=== PATIENT | male | born 1935 | race Hispanic/Latino ===

== ENCOUNTER → 2018-04-15 | Outpatient (CLI) | payer MEDICARE | END | disposition home or self-care (01) | LOC: SHCH 12:54 | PROVIDERS: ATTEND Internal Medicine Cardiovascular Disease | DX: I35.0 Nonrheumatic aortic (valve) stenosis (principal) | CPT/HCPCS: 93306 ==

== ENCOUNTER 2019-02-25 18:52 | Emergency (ER) | payer MEDICARE ==
[2019-02-25] MEDS ORDERED: SODIUM CHLORIDE 0.9% 1000ML 1,000 ML IV ONE (19:55)
[2019-02-25 20:03] LABS: BASOPHILS % (AUTO) 0.9 % (0.0-5.0); EOSINOPHILS % (AUTO) 0.6 % (0.0-8.0); HEMATOCRIT 31.9 % (42-54); LYMPHOCYTES % (AUTO) 33.4 % (21.0-51.0); MEAN CORPUSCULAR HEMOGLOBIN 32.7 pg (27.0-33.0); MEAN CORPUSCULAR HGB CONC 35.2 g/dL (32.0-36.0); MEAN CORPUSCULAR VOLUME 92.9 fL (79-99); MONOCYTES % (AUTO) 9.1 % (3.0-13.0); PLATELET COUNT (AUTO) 266 K/uL (130-400); RED BLOOD CELL COUNT(AUTO) 3.43 MIL/uL (4.50-6.20); RED CELL DISTRIBUTION WIDTH 12.8 % (11.0-15.5); WHITE BLOOD COUNT (AUTO) 5.3 K/uL (4.8-10.8)
[2019-02-25 20:19] LABS: CREATININE 0.8 mg/dL (0.5-1.5); POTASSIUM 4.2 mmol/L (3.5-5.1)
[2019-02-25 20:24] LABS: INR 0.96 (0.85-1.15); PROTHROMBIN TIME 10.1 SEC (9.6-11.6)
[2019-02-25 20:28] LABS: APPEARANCE,URINE Clear (CLEAR); BILIRUBIN,URINE Negative (NEGATIVE); COLOR,URINE Yellow (YELLOW); GLUCOSE, URINE (UA) Negative (NEGATIVE); KETONES,URINE 15 mg/dL (NEGATIVE); LEUKOCYTE ESTERASE ,URINE Negative (NEGATIVE); NITRATE,URINE Negative (NEGATIVE); OCCULT BLOOD,URINE Negative (NEGATIVE); PROTEIN,URINE Negative (NEGATIVE); UROBILINOGEN,URINE 0.2 mg/dL (0.2-1.0)
[2019-02-25 20:30] LABS: ALBUMIN 3.2 g/dL (3.5-5.0); BILIRUBIN,TOTAL 0.6 mg/dL (0.2-1.0); MAGNESIUM 2.3 mg/dL (1.80-2.40); THYROID STIMULATING HORMONE 1.05 uIU/mL (0.36-3.74); TOTAL PROTEIN, SERUM 6.2 g/dL (6.0-8.3)
[2019-02-25 20:46] LABS: B-TYPE NATRIURETIC PEPTIDE 9 pg/mL (0-100)
== END 2019-02-25 23:03 | disposition home or self-care (01) ==
LOC: EDH 18:52
DX: E86.9 Volume depletion, unspecified (principal); R42 Dizziness and giddiness; I10 Essential (primary) hypertension; R79.1 Abnormal coagulation profile
CPT/HCPCS: 36415; 70450; 71045; 80053; 81003; 82550; 83605; 83690; 83735; 83880; 84443; 84484; 85025; 85610; 85730; 87804 ×2; 93005; 96360; 96361; 99284; J7030

== ENCOUNTER 2019-02-28 10:05 | Inpatient (IN) | payer MEDICARE ==
[~2019-02-28] VITALS: Ht 170.2 cm; Wt 82.1 kg
[2019-02-28 10:41] LABS: BASOPHILS % (AUTO) 0.6 % (0.0-5.0); EOSINOPHILS % (AUTO) 0.5 % (0.0-8.0); LYMPHOCYTES % (AUTO) 42.1 % (21.0-51.0); MEAN CORPUSCULAR HEMOGLOBIN 33.6 pg (27.0-33.0); MEAN CORPUSCULAR HGB CONC 35.8 g/dL (32.0-36.0); MEAN CORPUSCULAR VOLUME 93.6 fL (79-99); MONOCYTES % (AUTO) 8.1 % (3.0-13.0); NEUTROPHILS % (AUTO) 48.7 % (40.0-77.0); NUCLEATED RED BLOOD CELLS 0.4 % (0.0-0.19); PLATELET COUNT (AUTO) 210 K/uL (130-400); RED BLOOD CELL COUNT(AUTO) 1.81 MIL/uL (4.50-6.20); RED CELL DISTRIBUTION WIDTH 12.9 % (11.0-15.5); WHITE BLOOD COUNT (AUTO) 5.2 K/uL (4.8-10.8)
[2019-02-28 10:54] LABS: INR 0.96 (0.85-1.15); PARTIAL THROMBOPLASTIN TIME 23.2 SEC (26.3-35.5); PROTHROMBIN TIME 10.1 SEC (9.6-11.6)
[2019-02-28 11:08] LABS: ALBUMIN 2.7 g/dL (3.5-5.0); BILIRUBIN,TOTAL 0.3 mg/dL (0.2-1.0); CREATININE 0.8 mg/dL (0.5-1.5); TOTAL PROTEIN, SERUM 4.8 g/dL (6.0-8.3)
[2019-02-28] MEDS ORDERED: CEFTRIAXONE SODIUM 1 GM ONE (11:08)
[2019-02-28 11:20] LABS: APPEARANCE,URINE Clear (CLEAR); BILIRUBIN,URINE Negative (NEGATIVE); COLOR,URINE Yellow (YELLOW); GLUCOSE, URINE (UA) Negative (NEGATIVE); KETONES,URINE Negative (NEGATIVE); LEUKOCYTE ESTERASE ,URINE Negative (NEGATIVE); NITRATE,URINE Negative (NEGATIVE); OCCULT BLOOD,URINE Negative (NEGATIVE); PH,URINE 5.5 (5.0-8.0); PROTEIN,URINE Negative (NEGATIVE)
[2019-02-28] MEDS ORDERED: MORPHINE SULFATE 2 MG/ML 1ML SYG IV PRN (12:30)
[2019-02-28] MEDS ORDERED: ONDANSETRON HCL 4 MG/2 ML VIAL IV PRN (12:30)
[2019-02-28] MEDS ORDERED: HYDROCODONE/ACETAMINOPHEN 5/325 MG TAB PO PRN (12:30)
[2019-02-28] MEDS ORDERED: ACETAMINOPHEN 325 MG TAB PO PRN (12:30)
[2019-02-28] MEDS ORDERED: LIDOCAINE HCL-MPF 1% 2ML VIAL IVP PRN (12:45)
[2019-02-28] MEDS ORDERED: POTASSIUM CHLORIDE 20 MEQ ERTAB PO PRN (12:45)
[2019-02-28] MEDS ORDERED: POTASSIUM CHLORIDE 20MEQ/100ML 100 ML IV PRN (12:45)
[2019-02-28] MEDS ORDERED: POTASSIUM CHLORIDE 10% ELIXIR 20 MEQ/15 ML UDCUP ONE ×2 (14:00→16:20)
[2019-02-28] MEDS ORDERED: ACETAMINOPHEN 325 MG TAB ONE (14:43)
[2019-02-28] MEDS ORDERED: SODIUM CHLORIDE 0.9% 250 ML IV ONE (17:37)
--- NOTE | 2019-02-28 18:00 | NUR ---
Patient recieved from ER. Patient alert and oriented x3. Patient placed in bed with assistance from family members. Bed placed in the lowest position. Oriented to room, call light placed within reach and instructed on how to use. Instructed to call nurse when getting up to prevent falling due to recent fall in the home on Wednesday. Bruising noted to the right forearm. Patient states he has about 1-2 beers/day prior to his illness. patient pending to bring medications and instructed caregiver on bringing medications. Instructed patient/family 1 more unit of PRBC to be infused. No other questions or concerns voiced.
[2019-02-28 18:15] VITALS: BP_SYST 126; BP_SYST 150; BP_DIAS 53; BP_DIAS 78
[2019-02-28] MEDS ORDERED: AMLO10TA4 PO (20:39)
[2019-02-28] MEDS ORDERED: HYDR12.530 PO (20:39)
[2019-02-28] MEDS ORDERED: ASPI-555 PO (20:39)
[2019-02-28] MEDS: POTASSIUM CHLORIDE 10% ELIXIR 20 MEQ/15 ML UDCUP PO PRN (22:41)
--- NOTE | 2019-02-28 22:50 | NUR ---
Second unit of blood transfusion completed, no adverse reaction noted during or after blood transfusion, VS stable, pt in bed calmly watching tv. Call soto placed within reach.
[2019-02-28] MEDS ORDERED: POTASSIUM CHLORIDE 10% ELIXIR 20 MEQ/15 ML UDCUP PO ONE (23:45)
--- NOTE | 2019-02-28 23:57 | NUR ---
Dr. Leija to see Pt Addendum: 03/01/19 at 0002 by ISABELLE GRAVES RN RN Dr. Leija to see Pt. tomorrow Dr. Leija call and said he will see pt tomorrow before sx, order for NS @ 50cc, one time 40 mEq potassium, and pt should have clear liq breakfast before 0800 tomorrow.
[2019-03-01] VITALS (22 sets, daily range): BP systolic 107–166; BP diastolic 46–82
[2019-03-01] MEDS: SODIUM CHLORIDE 0.9% 1000ML 1,000 ML IV SCH ×2 (00:05→18:52)
[2019-03-01 05:14] LABS: HEMATOCRIT 21.3 % (42-54); MEAN CORPUSCULAR HEMOGLOBIN 31.4 pg (27.0-33.0); MEAN CORPUSCULAR HGB CONC 34.4 g/dL (32.0-36.0); MEAN CORPUSCULAR VOLUME 91.4 fL (79-99); NUCLEATED RED BLOOD CELLS 0.1 % (0.0-0.19); PLATELET COUNT (AUTO) 180 K/uL (130-400); RED BLOOD CELL COUNT(AUTO) 2.33 MIL/uL (4.50-6.20); RED CELL DISTRIBUTION WIDTH 14.3 % (11.0-15.5); WHITE BLOOD COUNT (AUTO) 4.7 K/uL (4.8-10.8)
[2019-03-01 05:25] LABS: CREATININE 0.7 mg/dL (0.5-1.5); MAGNESIUM 1.8 mg/dL (1.80-2.40); POTASSIUM 3.9 mmol/L (3.5-5.1)
[2019-03-01] MEDS: PANTOPRAZOLE SODIUM 40 MG TABLET.DR PO SCH (08:50)
--- NOTE | 2019-03-01 13:14 | NUR ---
PATIENT TRANSPORTED VIA BED DOWNSTAIR FOR EGD BY DR CUEVAS.
--- NOTE | 2019-03-01 14:54 | NUR ---
DCP CM met with pt discussed dc plans. Pt is independent prior to admission, lives athome with spouse, fam lives close by. Has a provider 3hrs/day, active w/Lindsey GARCIA. Denies any other equipments/services. Pt feels safe to go back home, still dirves, spouse and son able to assist with transportation and needs as necessary. DC plan to home once stable. CM to cont to follow up. Addendum: 03/01/19 at 1457 by SHAVONNE HERNANDEZ LVN CM Amended: Links added.
[2019-03-01] MEDS ORDERED: MAGNESIUM CITRATE 296 ML SOLUTION PO SCH ×2 (16:00→22:00)
[2019-03-01] MEDS ORDERED: LACTULOSE 20 GM/30 ML UDCUP PO SCH (17:04)
[2019-03-01] MEDS ORDERED: PEG 3350/NA SULF,BICARB,CL/KCL 4000 ML SOLN PO SCH (17:05)
[2019-03-01 21:39] LABS: HEMATOCRIT 28.5 % (42-54); MEAN CORPUSCULAR HEMOGLOBIN 31.6 pg (27.0-33.0); MEAN CORPUSCULAR HGB CONC 33.8 g/dL (32.0-36.0); MEAN CORPUSCULAR VOLUME 93.4 fL (79-99); NUCLEATED RED BLOOD CELLS 0.1 % (0.0-0.19); PLATELET COUNT (AUTO) 280 K/uL (130-400); RED BLOOD CELL COUNT(AUTO) 3.05 MIL/uL (4.50-6.20); RED CELL DISTRIBUTION WIDTH 14.4 % (11.0-15.5)
--- NOTE | 2019-03-01 22:30 | NUR ---
Tap water Enema administered as ordered, well tolerated, no complication noted, well resulted.
[2019-03-02] VITALS (24 sets, daily range): BP systolic 106–180; BP diastolic 55–80
--- NOTE | 2019-03-02 04:39 | NUR ---
INSTITUTION DIRECTOR STRIP MINE SUPERVISOR NOTIFIED ABOUT SECOND SET OF ANAEROBIC BOTTLE TURNED POSITIVE FOR GRAM + COCCI IN CLUSTERS, PENDING IDENTIFICATION AND SENSITIVITY, NURSING WILL CONTINUE TO MONITOR.
[2019-03-02 05:03] LABS: HEMATOCRIT 21.6 % (42-54); MEAN CORPUSCULAR HEMOGLOBIN 32.8 pg (27.0-33.0); MEAN CORPUSCULAR HGB CONC 35.3 g/dL (32.0-36.0); MEAN CORPUSCULAR VOLUME 92.8 fL (79-99); NUCLEATED RED BLOOD CELLS 0.1 % (0.0-0.19); PLATELET COUNT (AUTO) 196 K/uL (130-400); RED BLOOD CELL COUNT(AUTO) 2.33 MIL/uL (4.50-6.20); RED CELL DISTRIBUTION WIDTH 14.1 % (11.0-15.5); WHITE BLOOD COUNT (AUTO) 5.6 K/uL (4.8-10.8)
[2019-03-02 05:16] LABS: CREATININE 0.7 mg/dL (0.5-1.5); POTASSIUM 3.4 mmol/L (3.5-5.1)
--- NOTE | 2019-03-02 05:28 | NUR ---
Second part of tap enema given, well tolerated, well resulted, clear liquid yellow bowel output, pt clean and ready for procedure, nursing will continue to monitor.
[2019-03-02] MEDS: PANTOPRAZOLE SODIUM 40 MG TABLET.DR PO SCH (09:00)
[2019-03-02] MEDS ORDERED: PROPOFOL 10 MG/ML 20ML VIAL IV ONE ×2 (13:27→13:28)
[2019-03-02] MEDS ORDERED: LIDOCAINE HCL-MPF 2% 5ML VIAL ONE (13:28)
[2019-03-02] MEDS ORDERED: PHENYLEPHRINE HCL 10 MG/ML 1ML VIAL IV ONE (13:50)
[2019-03-02] MEDS: SODIUM CHLORIDE 0.9% 1000ML 1,000 ML IV SCH (16:36)
[2019-03-03 03:55] VITALS: BP 114/60
[2019-03-03 04:52] LABS: MEAN CORPUSCULAR HEMOGLOBIN 31.9 pg (27.0-33.0); NUCLEATED RED BLOOD CELLS 0.1 % (0.0-0.19); PLATELET COUNT (AUTO) 210 K/uL (130-400); RED BLOOD CELL COUNT(AUTO) 2.21 MIL/uL (4.50-6.20); RED CELL DISTRIBUTION WIDTH 14.4 % (11.0-15.5); WHITE BLOOD COUNT (AUTO) 4.6 K/uL (4.8-10.8)
[2019-03-03 05:00] LABS: HEMATOCRIT 20.8 % (42-54)
[2019-03-03 05:10] LABS: CREATININE 0.7 mg/dL (0.5-1.5); POTASSIUM 3.6 mmol/L (3.5-5.1)
[2019-03-03 08:00] VITALS: BP 131/62
--- NOTE | 2019-03-03 08:46 | NUR ---
Morning Labs Reported. Pt s/p EGD and Colonoscopy on 03/01 and 03/02 respectively, Lab call to report an H&H of 7.1 and 20.8, critical lab communicated to Summer Burks, recommended to follow standing order to transfuse when less than 7. Pt at this point asymptomatic, no dizziness or spinning in the room, able to hold meaningful communication, stable VS, primary nurse updated, care endorsed.
[2019-03-03] MEDS: PANTOPRAZOLE SODIUM 40 MG TABLET.DR PO SCH (10:29)
[2019-03-03] MEDS: SODIUM CHLORIDE 0.9% 1000ML 1,000 ML IV SCH (10:30)
[2019-03-03 12:00] VITALS: BP 130/62
[2019-03-03] MEDS ORDERED: SODIUM CHLORIDE 0.9% 500ML 500 ML IV ONE (14:08)
[2019-03-03 16:00] VITALS: BP 147/67
[2019-03-03 20:00] VITALS: BP 135/62
[2019-03-03] MEDS ORDERED: AMLODIPINE BESYLATE 5 MG TAB PO SCH (21:00)
[2019-03-04] VITALS: BP 147/75
[2019-03-04 04:00] VITALS: BP 147/65
[2019-03-04 05:03] LABS: HEMATOCRIT 25.8 % (42-54); MEAN CORPUSCULAR HEMOGLOBIN 31.3 pg (27.0-33.0); MEAN CORPUSCULAR HGB CONC 34.2 g/dL (32.0-36.0); MEAN CORPUSCULAR VOLUME 91.6 fL (79-99); NUCLEATED RED BLOOD CELLS 0.2 % (0.0-0.19); PLATELET COUNT (AUTO) 197 K/uL (130-400); RED BLOOD CELL COUNT(AUTO) 2.81 MIL/uL (4.50-6.20); RED CELL DISTRIBUTION WIDTH 15.6 % (11.0-15.5); WHITE BLOOD COUNT (AUTO) 4.9 K/uL (4.8-10.8)
[2019-03-04 05:11] LABS: CREATININE 0.7 mg/dL (0.5-1.5); POTASSIUM 3.5 mmol/L (3.5-5.1)
[2019-03-04 08:00] VITALS: BP 153/70
[2019-03-04] MEDS: HYDROCHLOROTHIAZIDE 25 MG TABLET PO SCH (09:37)
[2019-03-04] MEDS: PANTOPRAZOLE SODIUM 40 MG TABLET.DR PO SCH ×2 (09:37→20:53)
[2019-03-04] MEDS: ASPIRIN 81MG TAB.CHEW PO SCH (09:37)
[2019-03-04] MEDS ORDERED: VANCOMYCIN PROTOCOL PER PHARMACY IV SCH (10:30)
[2019-03-04] MEDS ORDERED: VANCOMYCIN HCL 1 GM VIAL IV SCH (11:00)
[2019-03-04] MEDS ORDERED: VANCOMYCIN 1GM+NS 250ML 250 ML IV SCH ×2 (11:00→21:00)
[2019-03-04 12:00] VITALS: BP 132/62
[2019-03-04] MEDS: POTASSIUM CHLORIDE 10% ELIXIR 20 MEQ/15 ML UDCUP PO PRN ×2 (12:52→17:41)
[2019-03-04 16:00] VITALS: BP 153/70
[2019-03-04 20:00] VITALS: BP 150/74
[2019-03-05] VITALS: BP 137/65
[2019-03-05 04:00] VITALS: BP 130/59
[2019-03-05 05:10] LABS: HEMATOCRIT 26.5 % (42-54); MEAN CORPUSCULAR HEMOGLOBIN 30.6 pg (27.0-33.0); MEAN CORPUSCULAR HGB CONC 33.9 g/dL (32.0-36.0); MEAN CORPUSCULAR VOLUME 90.4 fL (79-99); PLATELET COUNT (AUTO) 221 K/uL (130-400); RED BLOOD CELL COUNT(AUTO) 2.93 MIL/uL (4.50-6.20); RED CELL DISTRIBUTION WIDTH 15.7 % (11.0-15.5)
[2019-03-05 05:21] LABS: CREATININE 0.8 mg/dL (0.5-1.5); POTASSIUM 3.6 mmol/L (3.5-5.1)
[2019-03-05 08:00] VITALS: BP 117/63
[2019-03-05] MEDS: ASPIRIN 81MG TAB.CHEW PO SCH (09:01)
[2019-03-05] MEDS: PANTOPRAZOLE SODIUM 40 MG TABLET.DR PO SCH (09:01)
[2019-03-05] MEDS: HYDROCHLOROTHIAZIDE 25 MG TABLET PO SCH (09:02)
[2019-03-05 12:00] VITALS: BP 118/61
[2019-03-05] MEDS ORDERED: PANT40TA PO (13:01)
[2019-03-05] MEDS ORDERED: FERR325T22 PO (13:04)
--- NOTE | 2019-03-05 15:40 | NUR ---
DISCHARGE PATIENT/DAUGHTER (SINDY) GIVEN DISCHARGE INSTRUCTIONS VIA TEACH BACK. 22G PIV TO RH DISCONTINUED, TIP INTACT. RX GIVEN FOR PROTONIX 40MG 1 TAB PO BID. PATIENT TO MAKE FOLLOW UP APPOINTMENT WITH MICKY GARCÍA NP IN 3 DAYS. PATIENT STABLE AT THIS TIME. DAUGHTER'S AT BEDSIDE TO TRANSPORT PATIENT HOME.
== END 2019-03-05 15:45 | disposition home or self-care (01) | DRG 378 ==
LOC: EDH 10:05 → EDHIP 12:23 → 3BH 17:35
PROVIDERS: ADMIT Internal Medicine; ATTEND Internal Medicine
DX: K92.1 Melena (principal); E44.0 Moderate protein-calorie malnutrition; D62 Acute posthemorrhagic anemia; D64.9 Anemia, unspecified; E11.9 Type 2 diabetes mellitus without complications; E66.01 Morbid (severe) obesity due to excess calories; I10 Essential (primary) hypertension
CPT/HCPCS: 36415; 36430; 43239; 43255; 45385; 71045; 80048; 80053; 81003; 82270; 83605; 83735; 84484; 85025; 85027; 85610; 85730; 86850; 86900; 86901; 86922; 87040; 87077; 87186; 87804; 93005; 99291; G0378; J0696; J2370; J2704; J3370; J3490; J7030; J7040; P9016

== ENCOUNTER 2019-04-30 10:31 | Emergency (ER) | payer MEDICARE ==
[~2019-04-30 10:31] MED LIST: AMLO10TA4 PO; ASPI-555 PO; FERR325T22 PO; HYDR12.530 PO; PANT40TA PO
[2019-04-30] MEDS ORDERED: METHYLPREDNISOLONE SOD SUCC 125MG/2ML VIAL ONE (11:25)
[2019-04-30] MEDS ORDERED: KETOROLAC TROMETHAMINE 30MG/ML ONE (11:26)
== END 2019-04-30 12:31 | disposition home or self-care (01) ==
LOC: EDH 10:31
DX: M16.11 Unilateral primary osteoarthritis, right hip (principal); I10 Essential (primary) hypertension; K21.9 Gastro-esophageal reflux disease without esophagitis; Z98.890 Other specified postprocedural states; Z87.891 Personal history of nicotine dependence
CPT/HCPCS: 73502; 96372 ×2; 99284; J1885; J2930

== ENCOUNTER → 2019-07-07 | Outpatient (CLI) | payer MEDICARE | END | disposition home or self-care (01) | LOC: RAH 14:27 | PROVIDERS: ATTEND Family Medicine | DX: I65.21 Occlusion and stenosis of right carotid artery (principal); N28.1 Cyst of kidney, acquired | CPT/HCPCS: 76770; 93880 ==

== ENCOUNTER 2019-11-05 20:11 | Emergency (ER) | payer MEDICARE ==
[2019-11-05 20:49] LABS: BASOPHILS % (AUTO) 0.7 % (0.0-5.0); EOSINOPHILS % (AUTO) 2.8 % (0.0-8.0); HEMATOCRIT 44.9 % (42-54); LYMPHOCYTES % (AUTO) 39.2 % (21.0-51.0); MEAN CORPUSCULAR HEMOGLOBIN 30.5 pg (27.0-33.0); MEAN CORPUSCULAR HGB CONC 33.4 g/dL (32.0-36.0); MEAN CORPUSCULAR VOLUME 91.3 fL (79-99); MONOCYTES % (AUTO) 11.6 % (3.0-13.0); NEUTROPHILS % (AUTO) 45.4 % (40.0-77.0); PLATELET COUNT (AUTO) 241 K/uL (130-400); RED BLOOD CELL COUNT(AUTO) 4.92 MIL/uL (4.50-6.20); RED CELL DISTRIBUTION WIDTH 12.3 % (11.0-15.5); WHITE BLOOD COUNT (AUTO) 6.1 K/uL (4.8-10.8)
[2019-11-05 21:02] LABS: CREATININE 0.8 mg/dL (0.5-1.5); POTASSIUM 3.8 mmol/L (3.5-5.1)
[2019-11-05 21:10] LABS: ALBUMIN 3.9 g/dL (3.5-5.0); BILIRUBIN,TOTAL 0.5 mg/dL (0.2-1.0); TOTAL PROTEIN, SERUM 7.5 g/dL (6.0-8.3)
[2019-11-05 21:24] LABS: APPEARANCE,URINE Clear (CLEAR); BILIRUBIN,URINE Negative (NEGATIVE); COLOR,URINE Yellow (YELLOW); GLUCOSE, URINE (UA) Negative (NEGATIVE); KETONES,URINE Negative (NEGATIVE); LEUKOCYTE ESTERASE ,URINE Negative (NEGATIVE); NITRATE,URINE Negative (NEGATIVE); OCCULT BLOOD,URINE Negative (NEGATIVE); PH,URINE 7.5 (5.0-8.0); PROTEIN,URINE Negative (NEGATIVE); UROBILINOGEN,URINE 0.2 mg/dL (0.2-1.0)
[2019-11-05] MEDS ORDERED: SODIUM CHLORIDE 0.9% 1000ML 1,000 ML IV ONE (22:15)
[2019-11-05] MEDS ORDERED: MECLIZINE HCL 25 MG TABLET ONE (22:17)
== END 2019-11-05 22:33 | disposition home or self-care (01) ==
LOC: EDH 20:11
DX: R42 Dizziness and giddiness (principal); I10 Essential (primary) hypertension; E11.9 Type 2 diabetes mellitus without complications; K21.9 Gastro-esophageal reflux disease without esophagitis
CPT/HCPCS: 36415; 70450; 80053; 81003; 82550; 83690; 84484; 85025; 93005; 96360; 96361; 99285; J7030

== ENCOUNTER → 2020-01-04 | Outpatient (CLI) | payer MEDICARE | END | disposition home or self-care (01) | LOC: RAH 07:42 | PROVIDERS: ATTEND Family Medicine | DX: G45.9 Transient cerebral ischemic attack, unspecified (principal) | CPT/HCPCS: 70544 ==

== ENCOUNTER → 2020-08-30 | Outpatient (CLI) | payer OTHER, MEDICARE ==
[~2020-08-30] MED LIST changes: -ASPI-555 PO; +ASPI-556 PO
== END | disposition home or self-care (01) ==
LOC: SHCH 13:59
PROVIDERS: ATTEND Internal Medicine Cardiovascular Disease
DX: I51.7 Cardiomegaly (principal); I25.10 Atherosclerotic heart disease of native coronary artery without angina pectoris
CPT/HCPCS: 93306; 93356

== ENCOUNTER → 2021-03-11 | Outpatient (CLI) | payer OTHER, MEDICARE | END | disposition home or self-care (01) | LOC: RAH 07:59 | PROVIDERS: ATTEND Internal Medicine Gastroenterology | DX: F10.20 Alcohol dependence, uncomplicated (principal); R14.3 Flatulence; K76.0 Fatty (change of) liver, not elsewhere classified; I77.811 Abdominal aortic ectasia | CPT/HCPCS: 76700 ==

== ENCOUNTER → 2023-12-31 | Outpatient (CLI) | payer MEDICARE | END | disposition home or self-care (01) | LOC: SHCH 08:18 | PROVIDERS: ATTEND Internal Medicine Cardiovascular Disease | DX: I35.0 Nonrheumatic aortic (valve) stenosis (principal); I51.7 Cardiomegaly | CPT/HCPCS: 93306 ==

== ENCOUNTER → 2024-05-08 | Outpatient (CLI) | payer MEDICARE ==
[~2024-05-08] MED LIST changes: +IOHEXOL 350 MG/ML 100ML INFUS..BTL IV ONE
== END | disposition home or self-care (01) ==
LOC: RAH 07:37
PROVIDERS: ATTEND Internal Medicine Gastroenterology
DX: K82.8 Other specified diseases of gallbladder (principal); R94.5 Abnormal results of liver function studies; R63.4 Abnormal weight loss; I25.10 Atherosclerotic heart disease of native coronary artery without angina pectoris; M47.815 Spondylosis without myelopathy or radiculopathy, thoracolumbar region
CPT/HCPCS: 74178; Q9967

== ENCOUNTER 2024-06-28 06:00 | Observation (INO) | payer MEDICARE ==
[2024-06-26 10:15] LABS: BASOPHILS # (AUTO) 0.04 K/uL (0.00-0.20); EOSINOPHILS # (AUTO) 0.24 K/uL (0.00-0.70); EOSINOPHILS % (AUTO) 6.3 % (0.0-8.0); HEMATOCRIT 38.8 % (42-54); IMMATURE GRANULOCYTE ABSOLUTE 0.01 K/uL (0-1); LYMPHOCYTES # (AUTO) 1.1 K/uL (1.0-4.8); MEAN CORPUSCULAR HEMOGLOBIN 31.2 pg (27.0-33.0); MEAN CORPUSCULAR HGB CONC 33.2 g/dL (32.0-36.0); MEAN CORPUSCULAR VOLUME 93.7 fL (79-99); MONOCYTES # (AUTO) 0.4 K/uL (0.1-1.0); MONOCYTES % (AUTO) 11.5 % (3.0-13.0); NEUTROPHILS % (AUTO) 51.9 % (40.0-77.0); PLATELET COUNT (AUTO) 166 K/uL (130-400); RED BLOOD CELL COUNT(AUTO) 4.14 MIL/uL (4.50-6.20); RED CELL DISTRIBUTION WIDTH 12.7 % (11.0-15.5); WHITE BLOOD COUNT (AUTO) 3.8 K/uL (4.8-10.8)
[2024-06-26 10:17] LABS: APPEARANCE,URINE CLEAR (CLEAR); BILIRUBIN,URINE NEGATIVE (NEGATIVE); COLOR,URINE YELLOW (YELLOW); GLUCOSE, URINE (UA) NEGATIVE (NEGATIVE); KETONES,URINE NEGATIVE (NEGATIVE); LEUKOCYTE ESTERASE ,URINE NEGATIVE Leu/uL (NEGATIVE); NITRATE,URINE NEGATIVE (NEGATIVE); OCCULT BLOOD,URINE NEGATIVE (NEGATIVE); PROTEIN,URINE NEGATIVE (NEGATIVE); UROBILINOGEN,URINE 0.2 mg/dL (0.2-1.0)
[2024-06-26 10:23] LABS: CREATININE 0.8 mg/dL (0.5-1.3); POTASSIUM 4.2 mmol/L (3.5-5.1)
[2024-06-26 10:32] LABS: ADD UA MICROSCOPIC NO
[2024-06-26 10:42] LABS: INR 1.05 (0.85-1.15); PARTIAL THROMBOPLASTIN TIME 26.3 SEC (26.3-35.5); PROTHROMBIN TIME 11.1 SEC (9.6-11.6)
[2024-06-26 11:08] VITALS: BP 147/63; PULSE 74; RESP 16
[2024-06-26 11:22] LABS: B-TYPE NATRIURETIC PEPTIDE 78 pg/mL (0-100)
[2024-06-28] VITALS (22 sets, daily range): BP systolic 101–174; BP diastolic 43–79; PULSE 50–90; RESP 11–57; O2SAT 100
[~2024-06-28] VITALS: Ht 162.6 cm; Wt 62.4 kg
[~2024-06-28 06:00] MED LIST changes: +ALEN70TA80 PO; -ASPI-556 PO; +ATOR40TA69 PO; -FERR325T22 PO; +HYDR-4068 PO; -HYDR12.530 PO; -IOHEXOL 350 MG/ML 100ML INFUS..BTL IV ONE; +LINA145C PO; +METF-444 PO; +METO-408 PO; -PANT40TA PO; +PANT40TA54 PO; +PREVAGEN PO
[2024-06-28] MEDS ORDERED: IOHEXOL 350 MG/ML 100ML INFUS..BTL IV ONE (07:21)
[2024-06-28] MEDS ORDERED: NITROGLYCERIN 50MG VIAL ONE (07:21)
[2024-06-28] MEDS ORDERED: HEPARIN 10,000 UNIT/10ML (1,000 UNIT/ML) VIAL ONE (07:21)
[2024-06-28] MEDS ORDERED: BIVALIRUDIN 250 MG/VIAL IV ONE (07:21)
[2024-06-28] MEDS ORDERED: FENTANYL CITRATE PF 50 MCG/1 ML 2ML VIAL ONE (07:21)
[2024-06-28] MEDS ORDERED: MIDAZOLAM HCL 1 MG/ML 2ML VIAL ONE (07:21)
[2024-06-28] MEDS ORDERED: LIDOCAINE HCL 400MG/20ML VIAL ONE (07:21)
[2024-06-28] MEDS ORDERED: IOHEXOL-350 50ML VIAL IV ONE ×2 (08:00→08:44)
[2024-06-28] MEDS ORDERED: METOPROLOL TARTRATE 1 MG/ML 5ML VIAL IV ONE (08:10)
[2024-06-28] MEDS ORDERED: CLOPIDOGREL 300MG TAB ONE ×2 (08:50→08:52)
[2024-06-28] MEDS ORDERED: EPTIFIBATIDE 2 MG/ML 10 ML VIAL IVP ONE (08:51)
[2024-06-28] MEDS ORDERED: ASPIRIN 325MG EC TAB PO ONE (08:51)
[2024-06-28] MEDS: 0.9%NACL 1000ML 1,000 ML IV ONE (09:22)
[2024-06-28] MEDS: 0.9%NACL 10ML VIAL IV SCH (10:00)
[2024-06-28] MEDS ORDERED: DEXTROSE 50%-WATER 50 ML DISP.SYRIN IV PRN (10:00)
[2024-06-28] MEDS: INSULIN HUMULIN R 100 UNIT/ML 3ML SQ SCH (16:12)
[2024-06-28] MEDS ORDERED: NON-FORMULARY MEDICATION 1 EACH (Amlodipine Besylate (Norvasc) 10 MG) PO PRN (16:30)
[2024-06-28] MEDS ORDERED: AMLODIPINE 5 MG TAB PO PRN (16:30)
[2024-06-28] MEDS: ATORVASTATIN 40 MG TABLET PO SCH (20:33)
[2024-06-28] MEDS: HYDROCODONE/ACETAMINOPHEN 10/325 MG TAB PO PRN (23:58)
[2024-06-29 04:00] VITALS: BP 135/57; PULSE 65; RESP 19
[2024-06-29] MEDS: CLOPIDOGREL 75MG TAB PO SCH (08:27)
[2024-06-29] MEDS: ASPIRIN 81MG CHEW TAB PO SCH (08:28)
[2024-06-29] MEDS: METOPROLOL SUCCINATE 25 MG TAB.SR.24H PO SCH (08:28)
[2024-06-29] MEDS: PANTOPRAZOLE 40 MG TAB DR PO SCH (08:28)
[2024-06-29] MEDS: Linaclotide (Linzess) 145 MCG PO SCH (08:29)
[2024-06-29 08:48] VITALS: BP 146/70; PULSE 71; RESP 18
[2024-06-29 09:00] VITALS: O2SAT 98
[2024-06-29] MEDS ORDERED: CLOP-31 PO (09:16)
[2024-06-29] MEDS ORDERED: AEC81 PO (09:16)
== END 2024-06-29 10:00 | disposition home or self-care (01) ==
LOC: DAH 06:00 → DAHIP 06:01 → 2CV 15:33 → 3BH 21:54
PROVIDERS: ADMIT Internal Medicine Cardiovascular Disease; ATTEND Internal Medicine Cardiovascular Disease
DX: I25.10 Atherosclerotic heart disease of native coronary artery without angina pectoris (principal); I35.0 Nonrheumatic aortic (valve) stenosis; I10 Essential (primary) hypertension; I25.2 Old myocardial infarction; I27.20 Pulmonary hypertension, unspecified; E78.5 Hyperlipidemia, unspecified; K76.0 Fatty (change of) liver, not elsewhere classified; Z98.61 Coronary angioplasty status; Z79.899 Other long term (current) drug therapy
CPT/HCPCS: 80048; 83880; 85025; 85610; 85730; 81003; 36415; 71045; 93005; 93460; 82948 ×3; C1769 ×3; C1887; C1894 ×4; C1725; C1874; C1760; C1893; Q9965; G0378 ×19; J3010; J3490 ×3; J7030; J2250; J1327; J1644 ×2; J0583; Q9967 ×3; A4215; A4223 ×3; A4222; A4221; A4216; A5200; A4606; C9600; 99156; 99157

== ENCOUNTER → 2024-08-18 | Outpatient (CLI) | payer MEDICARE ==
[~2024-08-18] MED LIST changes: +AEC81 PO; +CLOP-31 PO
== END | disposition home or self-care (01) ==
LOC: RAH 11:24
PROVIDERS: ATTEND Nurse Practitioner Acute Care
DX: J84.10 Pulmonary fibrosis, unspecified (principal); J84.9 Interstitial pulmonary disease, unspecified; R06.02 Shortness of breath; R50.9 Fever, unspecified; M47.815 Spondylosis without myelopathy or radiculopathy, thoracolumbar region
CPT/HCPCS: 71046

== ENCOUNTER → 2025-02-22 | Outpatient (CLI) | payer MEDICARE ==
[~2025-02-22] MED LIST changes: +AMLO-257 PO; +FE F1CAP33 PO
[2025-02-22 16:15] LABS: BASOPHILS # (AUTO) 0.05 K/uL (0.00-0.20); BASOPHILS % (AUTO) 0.7 % (0.0-5.0); EOSINOPHILS % (AUTO) 2.6 % (0.0-8.0); HEMATOCRIT 36.5 % (42-54); IMMATURE GRANULOCYTE ABSOLUTE 0.07 K/uL (0-1); LYMPHOCYTES # (AUTO) 1.7 K/uL (1.0-4.8); LYMPHOCYTES % (AUTO) 22.5 % (21.0-51.0); MEAN CORPUSCULAR HEMOGLOBIN 31.7 pg (27.0-33.0); MEAN CORPUSCULAR HGB CONC 33.2 g/dL (32.0-36.0); MEAN CORPUSCULAR VOLUME 95.5 fL (79-99); MONOCYTES # (AUTO) 0.7 K/uL (0.1-1.0); MONOCYTES % (AUTO) 8.9 % (3.0-13.0); NEUTROPHILS % (AUTO) 64.4 % (40.0-77.0); PLATELET COUNT (AUTO) 357 K/uL (130-400); RED BLOOD CELL COUNT(AUTO) 3.82 MIL/uL (4.50-6.20); RED CELL DISTRIBUTION WIDTH 13.4 % (11.0-15.5); WHITE BLOOD COUNT (AUTO) 7.7 K/uL (4.8-10.8)
[2025-02-22 16:40] LABS: CREATININE 0.9 mg/dL (0.5-1.3); POTASSIUM 3.9 mmol/L (3.5-5.1)
== END | disposition home or self-care (01) ==
LOC: LAB 11:37
PROVIDERS: ATTEND Internal Medicine Cardiovascular Disease
DX: I50.32 Chronic diastolic (congestive) heart failure (principal)
CPT/HCPCS: 36415; 80048; 83880; 85025

== ENCOUNTER 2025-06-06 07:00 | Day surgery (SDC) | payer MEDICARE, MEDICAID ==
[2025-06-04 11:30] LABS: IMMATURE GRANULOCYTE ABSOLUTE 0.03 K/uL (0-1); NUCLEATED RED BLOOD CELLS 0.0 % (0.0-0.19); PLATELET COUNT (AUTO) 243 K/uL (130-400); RED BLOOD CELL COUNT(AUTO) 4.33 MIL/uL (4.50-6.20); RED CELL DISTRIBUTION WIDTH 12.5 % (11.0-15.5); WHITE BLOOD COUNT (AUTO) 7.1 K/uL (4.8-10.8)
[2025-06-04 11:37] LABS: APPEARANCE,URINE CLEAR (CLEAR); GLUCOSE, URINE (UA) NEGATIVE (NEGATIVE); LEUKOCYTE ESTERASE ,URINE NEGATIVE Leu/uL (NEGATIVE); NITRATE,URINE NEGATIVE (NEGATIVE); OCCULT BLOOD,URINE +- (TRACE) (NEGATIVE)
[2025-06-04 11:38] LABS: CREATININE 0.7 mg/dL (0.5-1.3); GLOMERULAR FILTR. RATE CALC 88.0 mL/min (>90); GLUCOSE,RANDOM 129.0 mg/dL (70-105); SODIUM SERUM 134.0 mmol/L (136-145); UREA NITROGEN, BLOOD 12.0 mg/dL (7-18)
[2025-06-04 11:41] LABS: ADD UA MICROSCOPIC YES
[2025-06-04 11:52] LABS: INR 1.01 (0.85-1.15)
[2025-06-04 12:01] VITALS: BP_SYST 78; PULSE 75; RESP 18; TEMP 96.8
--- NOTE | 2025-06-04 12:18 | EKG ---
[facility] Test Date: 2025-06-04 Test Time: 11:26:25 Pat Name: KATTY HARVEY Department: [facility] Room: Gender: M Pediatric Acute Care Unit Nurse: [id number] : [id number] Requested By: DARIO ODONNELL Order Number: [id number] Reading MD: Kaylee Ramos Measurements Intervals [place] Rate: 98 P: 77 CT: 246 QRS: 52 QRSD: 142 T: 14 QT: 354 QTc: 451 Interpretive Statements Sinus rhythm with 1st degree AV block Right bundle branch block Compared to ECG 02/18/2025 01:18:41 Ventricular premature complex(es) no longer present Electronically Signed On 06-04-2025 15:31:30 CDT by Kaylee Ramos Please click the below link to view image of tracing.
--- NOTE | 2025-06-05 04:45 | HMCIMG ---
EXAM: CR Chest, 1 view CLINICAL HISTORY: Preoperative evaluation. COMPARISON: Chest radiograph dated 02/20/2025. FINDINGS: The lungs show no infiltrates or other acute findings. No pleural effusion or pneumothorax. The cardiomediastinal silhouette is within normal limits. No acute osseous abnormality. Bowel shadows under the right hemidiaphragm, compatible with Chilaiditi syndrome. IMPRESSION: No acute cardiopulmonary process is evident. No interval changes. /[place]
[~2025-06-06] VITALS: Ht 162.6 cm; Wt 64.6 kg
[2025-06-06] VITALS (9 sets, daily range): BP systolic 99–191; BP diastolic 49–77; PULSE 68–85; RESP 10–18; TEMP 97.6–98
[~2025-06-06 07:00] MED LIST changes: -ALEN70TA80 PO; -AMLO10TA4 PO; +CHOL-34 PO; -FE F1CAP33 PO; +LISI10TA24 PO; -METF-444 PO
[2025-06-06] MEDS ORDERED: IOHEXOL 350 MG/ML 100ML INFUS..BTL IV ONE (09:18)
[2025-06-06] MEDS ORDERED: HEParin-NS 1,000 UNIT/500 ML 1,500 ML IV ONE (09:18)
[2025-06-06] MEDS ORDERED: LIDOCAINE HCL 400MG/20ML VIAL ONE (09:18)
[2025-06-06] MEDS ORDERED: NITROGLYCERIN 50MG VIAL ONE (09:19)
[2025-06-06] MEDS ORDERED: MIDAZOLAM HCL 1 MG/ML 2ML VIAL ONE ×2 (09:29→11:16)
[2025-06-06] MEDS ORDERED: IOHEXOL-350 50ML VIAL IV ONE (11:40)
[2025-06-06] MEDS ORDERED: HEParin-NS 1,000 UNIT/500 ML 500 ML IV ONE (12:30)
[2025-06-06] MEDS ORDERED: 0.9%NACL 1000ML 1,000 ML IV SCH (12:30)
--- NOTE | 2025-06-06 12:40 | PRN ---
DATE OF PROCEDURE: 06/06/2025 PROCEDURE PERFORMED: RIGHT AND LEFT HEART CATHETERIZATION, LEFT VENTRICULOGRAM, LEFT AND RIGHT SELECTIVE CORONARY ANGIOGRAM, RIGHT COMMON FEMORAL ANGIOGRAM, PERCLOSE SUTURE CLOSURE OF THE RIGHT COMMON FEMORAL ARTERY, AND CONSCIOUS SEDATION SKIN TOGGLER: Dario Odonnell MD, [facility] INDICATION: Severe aortic stenosis PROCEDURE NOTE: After informed consent was obtained the patient was prepped and draped in the usual sterile fashion. A seven Bulgarian venous sheath with hemostatic valve was inserted into the right common femoral vein using micropuncture technique and ultrasound guidance. A 6 Bulgarian 65 cm long arterial sheath was inserted in the right femoral artery using micropuncture technique with ultrasound guidance with a front wall, first pass puncture. This was performed after fluoroscopic identification of bony landmarks to facilitate a more accurate puncture of the right common femoral artery. The arterial and venous sheaths were aspirated and flushed. A seven [place]ian [place] S tipped catheter was advanced with balloon floatation and fluoroscopic guidance to the RA, RV, PA, and pulmonary capillary wedge positions with pressure measurements obtained. A six Bulgarian pigtail catheter A 5 Bulgarian pigtail catheter was then advanced over a J-tipped guidewire to the ascending aorta and simultaneous pressure measurements via the long 65 cm six Bulgarian sheath and the five Bulgarian pigtail catheter were obtained in the descending aorta and were confirmed to be identical. Subsequently, using a straight wire, the pigtail catheter was advanced into the left ventricle with mild difficulty. The catheter was aspirated and flushed and simultaneous pressure measurements were obtained in the LV and high descending thoracic aorta. Nathalia and thermodilution cardiac outputs and valve areas were then calculated. A left ventriculogram was then performed in a 30 PAREDES projection. A pullback procedure was then performed, and this catheter was removed. A 6F JL-4 was then advanced to the ascending aorta over a J-tipped guidewire, was aspirated and flushed, and was used for selective left coronary angiograms in multiple obliquities. A JR-4 was advanced in a similar fashion to the ascending aorta over a J-tipped guidewire and was used for selective right coronary angiograms in multiple obliquities with findings as outlined below. A right common femoral angiogram was performed to assess suitability for Perclose suture closure and the Perclose device was deployed in standard fashion. Perclose suture closure was successful without bleeding or hematoma. The patient tolerated the procedure well and was returned to the holding area in stable condition. FINDINGS: RIGHT HEART CATHETERIZATION: RA pressure was 8 mm of mercury on the A-wave, 6 mm of mercury on the V-wave, and the RA mean pressure was 5 mm of mercury. RV pressure was 33/2 mm of mercury. PA pressure was 35/12 mm of mercury. Mean PA pressure was 19 mm of mercury. Pulmonary capillary wedge pressure was 15 mm of mercury on the A-wave, 13 mm of mercury on the V-wave, and mean PCWP was 12 mm of mercury. Thermodilution cardiac output was 5.2 L/min and cardiac index 3.1 L/min per meter squared Nathalia cardiac output was 5.3 L/min and cardiac index 2.8 L/min per meter squared. LEFT HEART HEMODYNAMICS: Peak to peak aortic valve gradient was 40 mm of mercury and mean aortic valve gradient was 37 mm of mercury. Aortic valve area was 0.8 cm2 using Nathalia cardiac output. Aortic valve area was 0.9 cm2 using thermodilution cardiac output. LEFT VENTRICULOGRAM: There was normal LV segmental wall motion and systolic function with an LVEF of 65%. There was no angiographic MR. CORONARY ANGIOGRAM: LEFT MAIN: The left main coronary artery was normal and there was no dampening or ventricularization of the pressure waveform. LEFT ANTERIOR DESCENDING: The proximal LAD and mid LAD were calcific with a 40% proximal tubular stenosis and a 40% mid LAD stenosis. At the junction of the mid to distal 3rd of the LAD were tandem 50 and 60% stenoses. The diagonal branches were normal. LEFT CIRCUMFLEX: The left circumflex was nondominant and gave off two high takeoff OM branches with a 50% stenosis in the 1st OM and tandem 60 and 70% stenoses in the 2nd OM branch. RAMUS INTERMEDIATE BRANCH: There was no ramus intermediate branch. RIGHT CORONARY ARTERY: The right coronary artery was large and dominant and had a widely patent 3.0 x 15 mm [employer] [place] YOLANDA from 06/28/2024. The distal RCA had a 20% stenosis and the posterolateral segment before the posterolateral branch had a 30% tubular stenosis. IMPRESSION: Severe aortic stenosis with aortic valve area of 0.8 to 0.9 cm2. Peak to peak aortic valve gradient 40 mm of mercury. Mean aortic valve gradient 37 mm of mercury. No mitral stenosis. No mitral regurgitation. Normal LV systolic function with LVEF of 65%. Nonobstructive coronary artery disease as noted above: (40 % proximal LAD, 40% mid LAD, 50 and 60% tandem mid to distal LAD, 50% OM1, 60 and 70% tandem OM2 stenoses, 20% distal RCA, and 30% posterolateral segment). Widely patent mid RCA 3.0 x 15 mm [place] YOLANDA from 06/28/2024. RECOMMENDATION: Proceed with CT angiogram with TAVR protocol and continue with TAVR versus SAVR consultation with CT surgery COMPLICATIONS OF PROCEDURE: None, the patient tolerated the procedure well and was returned to his room in stable condition. HEMOSTASIS: Perclose suture closure was successful without bleeding or hematoma. ESTIMATED BLOOD LOSS: Less than 10 mL. CONTRAST TOTAL: 105 mL. DARIO ODONNELL MD Jun 06, 2025 12:40
--- NOTE | 2025-06-06 14:08 | NUR ---
REPORT REPORT RECEIVED FROM BRIAN CASTILLO. PATIENT AWAKE AND STABLE NO ACTIVE BLEEDING NOTED AND NO SWELLING NOTED TO FEMORAL SITE.
== END 2025-06-06 16:21 | disposition home or self-care (01) ==
LOC: DAH 07:00
PROVIDERS: ATTEND Internal Medicine Cardiovascular Disease
DX: I35.0 Nonrheumatic aortic (valve) stenosis (principal); I25.10 Atherosclerotic heart disease of native coronary artery without angina pectoris; I25.84 Coronary atherosclerosis due to calcified coronary lesion; I11.0 Hypertensive heart disease with heart failure; I50.32 Chronic diastolic (congestive) heart failure; I44.0 Atrioventricular block, first degree; I45.10 Unspecified right bundle-branch block; E11.9 Type 2 diabetes mellitus without complications; E78.2 Mixed hyperlipidemia; I25.2 Old myocardial infarction; G47.00 Insomnia, unspecified; G89.29 Other chronic pain; Z79.899 Other long term (current) drug therapy; Z95.5 Presence of coronary angioplasty implant and graft; Z79.82 Long term (current) use of aspirin; Z79.84 Long term (current) use of oral hypoglycemic drugs
CPT/HCPCS: 80048; 83880; 85025; 85610; 85730; 81001; 36415; 71045; 93005; 93460; 99156; 99157 ×5; 82948; Q9965; C1769; C1894 ×3; C1760; C1893; J3010 ×3; J3490 ×2; J2250 ×2; J1644 ×2; Q9967 ×2; A4215; A4222; A4221; A4663; A4216; A4606; A4223 ×3

== ENCOUNTER → 2025-06-18 | Outpatient (CLI) | payer MEDICARE, MEDICAID ==
--- NOTE | 2025-06-18 12:28 | HMCIMG ---
DOUBLE CONTRAST UPPER GI SERIES: Finding: The study was performed using provocative maneuvers After swallowing effervescent crystal and thick barium, there is no definite intrinsic or extrinsic lesion seen in the esophagus. There is mild grade 1 esophageal reflux. The stomach is normal in size, shape, and configuration. The rugal folds appear to be normal. The duodenal bulb, duodenal sweep, and upper jejunum appear to be normal. Fluoroscopy time: 1.2 minutes IMPRESSION: Mild grade 1 esophageal reflux Otherwise NORMAL DOUBLE CONTRAST UPPER GI SERIES.
== END | disposition home or self-care (01) ==
LOC: RAH 08:52
PROVIDERS: ATTEND Internal Medicine Gastroenterology
DX: K21.9 Gastro-esophageal reflux disease without esophagitis (principal); K44.9 Diaphragmatic hernia without obstruction or gangrene; R63.4 Abnormal weight loss
CPT/HCPCS: 74240

== ENCOUNTER 2025-08-31 06:21 | Emergency (ER) | payer MEDICARE, MEDICAID ==
[~2025-08-31] VITALS: Ht 162.6 cm; Wt 70.3 kg
--- NOTE | 2025-08-31 06:38 | ERN ---
ED Note History of Present Illness Stated Complaint: NAUSEA, WEAKNESS Chief Complaint: Nausea,Vomiting,Diarrhea Time Seen by MD: 06:25 Dictation: This is an 89-year-old male who presented to the emergency room via EMS complaining of nausea and abdominal discomfort and generalized body weakness. Patient is an extremely poor historian and basically stated that he felt very sick when he woke up around 4:00 a.m. patient called his liability claims representative friend who was not on the schedule but ended up calling EMS for him for evaluation. Patient denied vomitings but stated that he has nausea and feels like he would want to vomit. He denied any hematemesis or melena. He also denied any fever chills or rigors. Temperature 98.1 pulse 80 respirations 16 blood pressure 200/81 with a pulse oximetry of 99% on room air Left heart catheterization/right heart catheterization/LV-gram Severe aortic stenosis with aortic valve area of 0.8 to 0.9 cm2. Peak to peak aortic valve gradient 40 mm of mercury. Mean aortic valve gradient 37 mm of mercury. No mitral stenosis. No mitral regurgitation. Normal LV systolic function with LVEF of 65%. Nonobstructive coronary artery disease as noted above: (40 % proximal LAD, 40% mid LAD, 50 and 60% tandem mid to distal LAD, 50% OM1, 60 and 70% tandem OM2 stenoses, 20% distal RCA, and 30% posterolateral segment). Widely patent mid RCA 3.0 x 15 mm [place] Hitchcock YOLANDA from 06/28/2024. Allergies: Coded Allergies: No Known Drug Allergies (Unverified Allergy, Unknown, 06/04/25) Home Meds Active Scripts Clopidogrel Bisulfate (Plavix) 75 Mg Tablet, 75 MG PO DAILY, #90 TAB 3 Refills Prov:DARIO ODONNELL MD 06/29/24 Aspirin (ASPIRIN 81 MG ECTAB) 81 Mg Ectab, 81 MG PO DAILY, #100 TAB.EC 3 Refills Prov:DARIO ODONNELL MD 06/29/24 Reported Medications Linaclotide (Linzess) 145 Mcg Capsule, 145 MCG PO DAILY, CAP 06/04/25 Cholecalciferol (Vitamin D3) (Vitamin D3) 25 Mcg (1000 Unit) Tablet, 25 MCG PO AM, TAB 06/04/25 Lisinopril (Lisinopril) 10 Mg Tablet, 10 MG PO AM, TAB 06/04/25 Amlodipine Besylate (Amlodipine Besylate) 5 Mg Tablet, 1 TAB PO DAILY for 30 Days, #30 TAB 0 Refills 02/18/25 Metoprolol Succinate (Metoprolol Succinate) 25 Mg Tab.er.24h, 25 MG PO DAILY, TAB 06/26/24 [Prevagen] No Conflict Check, 1 CAP PO DAILY 06/26/24 Atorvastatin Calcium (LIPITOR) 40 Mg Tablet, 40 MG PO AM, TAB 06/26/24 Pantoprazole Sodium (Pantoprazole Sodium) 40 Mg Tablet.dr, 40 MG PO DAILY, TAB 06/26/24 Hydrocodone/Acetaminophen (Hydrocodon-Acetaminophn 10-325) 10 Mg-325 Mg Tablet, 1 EACH PO TID PRN for PAIN, TAB 06/26/24 Past Medical History Past Medical History: A-Fib, Diabetes-Type II, High Cholesterol, Hypertension Additional Past Medical Hx: Leaking heart valve getting worse her daughter. Surgical History: Unknown Family History: Negative RN Note Reviewed/Agreed w/PFSH: Yes Review of System Dictation Constitutional: Negative for fever,chills, and weight loss positive for generalized body weakness Eyes: Negative for injury, pain,redness, and discharge ENT: Negative for injury,pain or swelling Cardiovascular: Negative for chest pain, palpitations, and edema Respiratory: Negative for shortness of breath, cough, and wheezing, Abdomen/GI: Positive for abdominal pain, nausea, vomiting, diarrhea, Back: Negative for injury and pain : Negative for injury, bleeding and discharge MS/Extremity: Negative for injury and deformity Skin: Negative for rash, and discoloration Neuro: Negative for headache, weakness, numbness, tingling, and seizure Psych: Negative for suicide ideation, homicidal ideation, and hallucinations Initial Vital Sign VS Vital Signs Date Time Temp Pulse Resp B/P (MAP) Pulse Ox O2 Delivery O2 Flow Rate FiO2 08/31/25 06:23 98.1 80 16 200/81 99 Room Air 0 08/31/25 06:51 21 Physical Exam Dictation General: awake, alert, NAD Head/Face: Normocephalic, atraumatic Eyes: PERRL, EOMI, vision at baseline ENT: oral cavity clear, TMs clear, no signs of infection Neck: Trachea midline, supple, no nuchal rigidity Cardiovascular: S1-S2 regular, grade 2/6 ejection systolic murmur at the right upper sternal border. Respiratory: Decreased air entry, no respiratory distress, No rales or wheezes Abdomen: Soft, non-tender, non-distended, normal bowel sounds, no guarding or rebound. Ventral hernia/divarication of recti Skin: Warm, dry, normal turgor, no rash MS/Extremity: Pulses equal, no cyanosis, neurovascular intact, FROM Neuro: COAx4, GCS 15, strength 5/5, CN 2-12 intact, normal cerebellar exam, normal gait, Psych: Normal behavior, mood, and affect normal Extremities-trace edema without any palpable cords, Homans sign is negative Results (Laboratory/Radiology) Laboratory/Radiology Laboratory Tests Test 08/31/25 06:25 08/31/25 06:36 08/31/25 06:50 08/31/25 09:16 White Blood Count 7.2 K/uL (4.8-10.8) Red Blood Count 4.03 MIL/uL (4.50-6.20) L Hemoglobin 12.7 g/dL (14.0-18.0) L Hematocrit 37.5 % (42-54) L Mean Corpuscular Volume 93.1 fL (79-99) Mean Corpuscular Hemoglobin 31.5 pg (27.0-33.0) Mean Corpuscular Hemoglobin Concent 33.9 g/dL (32.0-36.0) Red Cell Distribution Width 13.6 % (11.0-15.5) Platelet Count 262 K/uL (130-400) Mean Platelet Volume 9.1 fL (7.5-10.5) Immature Granulocyte % (Auto) 0.7 % (0-1) Neutrophils (%) (Auto) 56.1 % (40.0-77.0) Lymphocytes (%) (Auto) 29.9 % (21.0-51.0) Monocytes (%) (Auto) 9.0 % (3.0-13.0) Eosinophils (%) (Auto) 3.9 % (0.0-8.0) Basophils (%) (Auto) 0.4 % (0.0-5.0) Neutrophils # (Auto) 4.1 K/uL (1.8-7.7) Lymphocytes # (Auto) 2.2 K/uL (1.0-4.8) Monocytes # (Auto) 0.7 K/uL (0.1-1.0) Eosinophils # (Auto) 0.28 K/uL (0.00-0.70) Basophils # (Auto) 0.03 K/uL (0.00-0.20) Absolute Immature Granulocyte (auto 0.05 K/uL (0-1) Nucleated Red Blood Cells 0.0 % (0.0-0.19) Sodium Level 132 mmol/L (136-145) L Potassium Level 4.1 mmol/L (3.5-5.1) Chloride Level 98 mmol/L (101-111) L Carbon Dioxide Level 25 mmol/L (21-32) Blood Urea Nitrogen 14 mg/dL (7-18) Creatinine 0.5 mg/dL (0.5-1.3) Glomerular Filtration Rate Calc 98 mL/min (>90) Random Glucose 117 mg/dL (70-105) H Lactic Acid Level 2.0 mmol/L (0.8-2.5) Total Calcium 8.8 mg/dL (8.5-10.1) Total Creatine Kinase 253 U/L (21-232) #H Troponin I High Sensitivity 14.5 ng/L (4-75) 21 ng/L (4-75) B-Type Natriuretic Peptide 93 pg/mL (0-100) Lipase 19 U/L (16-77) Influenza Type A Antigen Negative For Type A Influenza Type B Antigen Negative For Type B SARS-CoV-2 Antigen (Rapid) PRESUMPTIVE NEGATIVE Urine Color LIGHT-YELLOW (YELLOW) Urine Appearance CLEAR (CLEAR) Urine pH 7.0 (5.0-8.0) Urine Specific [place] 1.010 (1.001-1.031) Urine Protein NEGATIVE mg/dL (NEGATIVE) Urine Glucose (UA) NEGATIVE mg/dL (NEGATIVE) Urine Ketones NEGATIVE mg/dL (NEGATIVE) Urine Occult Blood NEGATIVE (NEGATIVE) Urine Nitrate NEGATIVE (NEGATIVE) Urine Bilirubin NEGATIVE mg/dL (NEGATIVE) Urine Urobilinogen 0.2 mg/dL (0.2-1.0) Urine Leukocyte Esterase NEGATIVE Jacquelyn/uL Labs Reviewed?: Yes EKG Comment: Twelve lead EKG done on 08/31/2025 at 6:33 a.m. showed a heart rate of 80, UT interval 213, QRS duration 139, QT/QTC 436/500 Impression normal sinus rhythm with a slightly prolonged UT interval right bundle branch block nonspecific ST-T changes noted. No acute ST-T elevations or deep ST depressions noted. EKG rhythm strip shows a normal sinus rhythm with a lot of artifact nonspecific ST-T changes noted. Interpreted by ER MD Dr. Sequeira X-RAY Comment: [facility] [address] [place] [address] IMAGING REPORT Signed PATIENT: KATTY HARVEY MR#: [id number] : 1935 SEX: M AGE: 89 LOCATION: [facility] ORDER 2 STATUS: REG ER REPORT#: [id number] SERVICE 9 REASON: h/o afib ORDERING PHYSICIAN: WILLIAN SEQUEIRA MD PROCEDURE: CXR1VW - CHEST 1VW EXAM: CR Chest, 1 view CLINICAL HISTORY: Afebrile. COMPARISON: None provided. FINDINGS: The lungs show no infiltrates or other acute findings. No pleural effusion or pneumothorax. The cardiomediastinal silhouette is within normal limits. Mild atherosclerotic aorta. No acute osseous abnormality. Mildly elevated left hemidiaphragm. Chilaiditi syndrome under the right hemidiaphragm. IMPRESSION: No acute cardiopulmonary process is evident. Compared to the prior study, there is no significant interval change. /[place] DICTATED BY: LAUREANO GASTELUM Jr., MD DATE: 08/31/25903 ELECTRONICALLY SIGNED BY: LAUREANO GASTELUM Jr., MD DATE: 08/31/25903 Ultrasound Comment: Echocardiogram Conclusion Mild concentric left ventricular hypertrophy. LVEF is 55-60%. Stage I diastolic dysfunction. Abmormal GLS-16.0%. The aortic valve is not well visualized but appears heavily thickened with decreased opening. No aortic regurgitation is present. There is severe aortic valvular stenosis with pk 73mmHg, mean gradient 49mmHg valve areal 0.6 cm2 DICTATED BY: XANDER CLAY MD DATE: 02/18/25 1346 ELECTRONICALLY SIGNED BY: XANDER CLAY MD DATE: 02/18/[address] Scan Comment: [address] [place], [place] [id number] IMAGING REPORT Signed PATIENT: KATTY HARVEY MR#: [id number] : 1935 SEX: M AGE: 89 LOCATION: [facility] ORDER 6 STATUS: REG ER REPORT#: [id number] SERVICE 5 REASON: nausea vomitings ORDERING PHYSICIAN: WILLIAN SEQUEIRA MD PROCEDURE: ABD PEL WO - CT ABDOMEN/PELVIS W/O CONTRAST EXAM: CT Abdomen and Pelvis Without IV contrast CLINICAL HISTORY: nausea vomitings TECHNIQUE: Axial computed tomography images of the abdomen and pelvis without intravenous contrast. CONTRAST: No IV contrast. COMPARISON: CT abdomen and pelvis dated 05/08/2024. FINDINGS: LUNG BASES: Left diaphragmatic eventration bibasilar dependent atelectasis. No pleural effusions are seen. LIVER: Unremarkable. GALLBLADDER AND BILE DUCTS: The gallbladder appears within normal limits. No radioopaque gallstones are seen. No biliary ductal dilatation is evident. PANCREAS: Unremarkable. SPLEEN: Unremarkable. ADRENAL GLANDS: Unremarkable. KIDNEYS, URETERS, AND BLADDER: The kidneys appear within normal limits. There is no hydronephrosis or hydroureter. No urinary calculi are seen. STOMACH AND BOWEL: Unremarkable appearance of the stomach and bowel. No evidence of bowel obstruction. No evidence suggesting enteritis or colitis. Small fat containing left inguinal hernia. APPENDIX: No evidence of acute appendicitis on CT examination. PERITONEUM: No free fluid. No free air. LYMPH NODES: No lymphadenopathy is evident. REPRODUCTIVE: Unremarkable as visualized. VASCULATURE: No evidence of abdominal aortic aneurysm. Atherosclerotic calcifications of the aorta and the iliac arteries. BONES: No aggressive appearing osseous lesion. No acute osseous pathology evident. Degenerative changes in the visualized vertebrae with partial collapse of L1 and L2 vertebra. IMPRESSION: No acute intra-abdominal or pelvic abnormality. Small fat fat-containing left inguinal hernia. Degenerative changes in the visualized vertebrae with partial collapse of L1 and L2 vertebrae. /[place] DICTATED BY: LAUREANO GASTELUM Jr., MD DATE: 08/31/25847 ELECTRONICALLY SIGNED BY: LAUREANO GASTELUM Jr., MD DATE: 08/31/25847 ED Course ED Course Orders Procedure Category Date Status Time Cbc With Differential LAB 08/31/25 Complete 06:30 Urinalysis Profile LAB 08/31/25 Complete 06:30 12 Lead Ekg Tracing- EKG 08/31/25 Complete Technical 06:30 0.9%Nacl 1000ml (Ns PHA 08/31/25 In Process 1000ml) 06:30 Ondansetron 4mg PHA 08/31/25 Complete Tablet (Zofran 4mg 06:30 Chest 1vw RAD 08/31/25 Resulted 06:30 Lipase LAB 08/31/25 Complete 06:30 Basic Metabolic Panel LAB 08/31/25 Complete 06:30 Influenza Type A & B, LAB 08/31/25 Complete Rapid 06:33 Covid19 (Sars Antigen LAB 08/31/25 Complete Rapid) 06:33 Lactic Acid LAB 08/31/25 Complete 06:33 B-Type Natriuretic LAB 08/31/25 Complete Peptide 06:33 Cardiac Panel LAB 08/31/25 Complete 06:33 Ct Abdomen/Pelvis W/O CT 08/31/25 Resulted Contrast 06:36 Troponin I High LAB 08/31/25 Complete Sensitivity 09:10 Current Medications Medications (Trade) Dose Ordered Sig/[place] Route PRN Reason Start Time Stop Time Status Last Admin Dose Admin Ondansetron HCl (zoFRAN 4MG TABLET) 4 mg ONCE ONCE PO 08/31/25 06:30 08/31/25 06:34 DC 08/31/25 06:47 Sodium Chloride 1,000 ml @ 125 mls/hr ONCE ONCE IV 08/31/25 06:30 08/31/25 14:29 08/31/25 06:47 Vital Signs Date Time Temp Pulse Resp B/P (MAP) Pulse Ox O2 Delivery O2 Flow Rate FiO2 08/31/25 09:33 98.6 79 15 169/70 98 Room Air* 0 21 08/31/25 09:12 98.6 79 20 174/70 98 Room Air* 0 21 08/31/25 07:23 98.6 77 15 188/77 99 Room Air* 0 21 08/31/25 06:51 98.1 76 16 187/72 100 Room Air* 0 21 08/31/25 06:23 98.1 80 16 200/81 99 Room Air 0 We will perform diagnostic labs, advanced imaging and administer medications according to the patient's complaint. Once the results are available, will review and personally interpreted the labs to rule out any acute life- threatening emergency the trach require immediate intervention and treatment. I will then re-evaluate the patient after treatment and diagnostic exams have return to determine whether the patient requires any further testing, can safely be discharged home or need further admission to hospital for additional treatment and evaluation. Medical Decision Making [facility] differential-gastroparesis, indigestion, gastritis, gastroenteritis, infectious colitis, diverticulitis, ischemic colitis, constipation, pancreatitis, appendicitis This is an 89-year-old male who presented to the emergency room via EMS complaining of nausea and abdominal discomfort and generalized body weakness. Patient is an extremely poor historian and basically stated that he felt very sick when he woke up around 4:00 a.m. patient called his liability claims representative friend who was not on the schedule but ended up calling EMS for him for evaluation. Patient denied vomitings but stated that he has nausea and feels like he would want to vomit. He denied any hematemesis or melena. He also denied any fever chills or rigors. Temperature 98.1 pulse 80 respirations 16 blood pressure 200/81 with a pulse oximetry of 99% on room air Repeat blood pressure was within normal limits after blood pressure was appropriately placed. Patient was complaining of back pain and vague symptoms. All symptoms whcih consisted of back pain and nausea were addressed. I advised patient proper follow up with financial underwriter. Throughout er visit patient has been stable . Problem List Problem List: (1) Hypertensive urgency (2) Weakness generalized (3) Aortic stenosis DX & DISP Disposition: Discharge Decision to Admit Time: 09:47 Departure Impression: Primary Impression: Weakness generalized Additional Impression: Dehydration Condition: Stable Additional Instructions: You have been reviewed in the emergency department at [facility] after presenting with chest pain. After considering your history, your risk factors, your EKG and your blood test troponins, have been found to be at very low risk less than (1 in 100) of having a major adverse cardiac event (like heart attack) in the near future. In the " low risk" group, the risks of doing further tests and treatment as the inpatient outweighs the benefits. In many patients in the low risk group for the test of any sort or unnecessary, however he should discuss this further with his general practitioner who will understand the medical and personal backgrounds better. Because we have never declared you" no risk" we would suggest. 1 returning for medical review if you have further episodes of chest pain/arm pain or other concerning symptoms like dizziness, collapse, palpitations or shortness of breath. 2. Following up with your local doctor who will consider the need for further testing and will also ensure that any modifiable risk factors you may have for heart disease are optimally managed. Patient will be discharged in stable condition at the moment discharge patient states , no chest pain Referrals: LIAT GOMES MD (PCP) Time of Disposition: 09:47 WILLIAN SEQUEIRA MD Aug 31, 2025 06:38 KIESHA MATTHEWS MD Aug 31, 2025 07:56
[2025-08-31 06:47] LABS: IMMATURE GRANULOCYTE ABSOLUTE 0.05 K/uL (0-1); NUCLEATED RED BLOOD CELLS 0.0 % (0.0-0.19); PLATELET COUNT (AUTO) 262 K/uL (130-400); RED BLOOD CELL COUNT(AUTO) 4.03 MIL/uL (4.50-6.20); RED CELL DISTRIBUTION WIDTH 13.6 % (11.0-15.5); WHITE BLOOD COUNT (AUTO) 7.2 K/uL (4.8-10.8)
[2025-08-31] MEDS: 0.9%NACL 1000ML 1,000 ML IV ONE (06:47)
--- NOTE | 2025-08-31 06:55 | NUR ---
PT TO CT AT THIS TIME
[2025-08-31 06:59] LABS: CREATININE 0.5 mg/dL (0.5-1.3); GLOMERULAR FILTR. RATE CALC 98.0 mL/min (>90); GLUCOSE,RANDOM 117.0 mg/dL (70-105); SODIUM SERUM 132.0 mmol/L (136-145); UREA NITROGEN, BLOOD 14.0 mg/dL (7-18)
[2025-08-31 07:08] LABS: CREATINE KINASE, TOTAL 253.0 U/L (21-232)
[2025-08-31 07:08] LABS: APPEARANCE,URINE CLEAR (CLEAR); GLUCOSE, URINE (UA) NEGATIVE (NEGATIVE); LEUKOCYTE ESTERASE ,URINE NEGATIVE Leu/uL (NEGATIVE); NITRATE,URINE NEGATIVE (NEGATIVE); OCCULT BLOOD,URINE NEGATIVE (NEGATIVE)
[2025-08-31 07:09] LABS: COVID19 (SARS ANTIGEN RAPID) PRESUMPTIVE NEGATIVE (NEGATIVE); INFLUENZA TYPE A Negative For Type A (NEGATIVE); INFLUENZA TYPE B Negative For Type B (NEGATIVE)
[2025-08-31 07:12] LABS: ADD UA MICROSCOPIC NO
--- NOTE | 2025-08-31 07:18 | EKG ---
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
--- NOTE | 2025-08-31 07:49 | HMCIMG ---
EXAM: CT Abdomen and Pelvis Without IV contrast CLINICAL HISTORY: nausea vomitings TECHNIQUE: Axial computed tomography images of the abdomen and pelvis without intravenous contrast. CONTRAST: No IV contrast. COMPARISON: CT abdomen and pelvis dated 05/08/2024. FINDINGS: LUNG BASES: Left diaphragmatic eventration bibasilar dependent atelectasis. No pleural effusions are seen. LIVER: Unremarkable. GALLBLADDER AND BILE DUCTS: The gallbladder appears within normal limits. No radioopaque gallstones are seen. No biliary ductal dilatation is evident. PANCREAS: Unremarkable. SPLEEN: Unremarkable. ADRENAL GLANDS: Unremarkable. KIDNEYS, URETERS, AND BLADDER: The kidneys appear within normal limits. There is no hydronephrosis or hydroureter. No urinary calculi are seen. STOMACH AND BOWEL: Unremarkable appearance of the stomach and bowel. No evidence of bowel obstruction. No evidence suggesting enteritis or colitis. Small fat containing left inguinal hernia. APPENDIX: No evidence of acute appendicitis on CT examination. PERITONEUM: No free fluid. No free air. LYMPH NODES: No lymphadenopathy is evident. REPRODUCTIVE: Unremarkable as visualized. VASCULATURE: No evidence of abdominal aortic aneurysm. Atherosclerotic calcifications of the aorta and the iliac arteries. BONES: No aggressive appearing osseous lesion. No acute osseous pathology evident. Degenerative changes in the visualized vertebrae with partial collapse of L1 and L2 vertebra. IMPRESSION: No acute intra-abdominal or pelvic abnormality. Small fat fat-containing left inguinal hernia. Degenerative changes in the visualized vertebrae with partial collapse of L1 and L2 vertebrae. /[place]
--- NOTE | 2025-08-31 08:05 | HMCIMG ---
EXAM: CR Chest, 1 view CLINICAL HISTORY: Afebrile. COMPARISON: None provided. FINDINGS: The lungs show no infiltrates or other acute findings. No pleural effusion or pneumothorax. The cardiomediastinal silhouette is within normal limits. Mild atherosclerotic aorta. No acute osseous abnormality. Mildly elevated left hemidiaphragm. Chilaiditi syndrome under the right hemidiaphragm. IMPRESSION: No acute cardiopulmonary process is evident. Compared to the prior study, there is no significant interval change. /[place]
--- NOTE | 2025-08-31 09:03 | NUR ---
PER DR. THOMAS, PT TOOK HOME MEDICATIONS FOR ELEVATED BLOOD PRESSURE. PT GIVEN LISINOPRIL 10MG PO, METOPROLOL 10MG AND AMLODIPINE 5MG PT ONCE NOW. WILL CONTINUE TO MONITOR PT BLOOD PRESSURE WILL REASSESS BP IN 30 MINUTES.
[2025-08-31 09:33] VITALS: BP 169/70; PULSE 79; RESP 15; TEMP 98.6; O2SAT 98
--- NOTE | 2025-08-31 10:10 | NUR ---
PT AAOX4, NO DISTRESS, BLOOD PRESSURE STABLE AFTER MORING MEDICATIONS GIVEN, DR MATTHEWS AT BEDSIDE,PT GIVEN INSTRUCTIONS FOR FOLLOW UP WITH PCP. IV REMOVED, CATHETER INTACT. PT DRESSED BY PROVIDER, PT PLACED IN W/C TAKEN TO ED LOBBY. PT DRIVEN HOME BY DAUGHTER.
== END 2025-08-31 10:22 | disposition home or self-care (01) ==
LOC: EDH 06:21
DX: R53.1 Weakness (principal); E86.0 Dehydration; R10.9 Unspecified abdominal pain; Z20.822 Contact with and (suspected) exposure to COVID-19; E11.9 Type 2 diabetes mellitus without complications; E78.00 Pure hypercholesterolemia, unspecified; I10 Essential (primary) hypertension; I48.91 Unspecified atrial fibrillation; Z79.02 Long term (current) use of antithrombotics/antiplatelets; Z79.899 Other long term (current) drug therapy; Z79.82 Long term (current) use of aspirin
CPT/HCPCS: 99285; 74176; 96360; 71045; 87426; 82550; 84484 ×2; 80048; 83880; 83690; 85025; 87804 ×2; 83605; 81003; 36415; 93005; Q0162; J7030